=== PATIENT | female | born 1955 | race Caucasian/White ===

== ENCOUNTER 2016-12-07 14:04 | Emergency (ER) | payer BC ==
[2016-12-07 14:50] LABS: BASOPHILS 0.1 % (0-2); EOSINOPHILS 0.1 % (0-7); HEMATOCRIT 31.3 % (36.0-48.0); HEMOGLOBIN 10.8 g/dL (12-16); IMMATURE GRANULOCYTES 0.7 % (0-5); LYMPHOCYTES 8.2 % (15-50); MCH 32.3 pg (26.0-34.0); MCHC 34.5 g/dL (31.0-37.0); MCV 93.7 fL (80.0-100.0); MEAN PLATELET VOLUME 9.8 fL (7.4-10.4); MONOCYTES 10.5 % (2-11); NEUTROPHILS 80.4 % (40-80); PLATELET COUNT 260 10x3/uL (130-400); RBC 3.34 10x6/uL (4.00-5.40); WBC 7.1 10x3/uL (4.8-10.8)
[2016-12-07 15:10] LABS: APPEARANCE CLEAR (CLEAR); BILIRUBIN NEGATIVE (NEGATIVE); COLOR YELLOW (YELLOW); GLUCOSE NEGATIVE (NEGATIVE); KETONE NEGATIVE (NEGATIVE); LEUKOCYTE ESTERASE NEGATIVE (NEGATIVE); NITRITE NEGATIVE (NEGATIVE); PROTEIN NEGATIVE (NEGATIVE); UROBILINOGEN NORMAL (NORMAL)
[2016-12-07 15:14] LABS: INR 1.21 (0.85-1.17); PROTIME 15.2 SECONDS (11.6-15.0)
[2016-12-07 17:23] LABS: ALBUMIN 3.1 g/dL (3.4-5.0); ALKALINE PHOSPHATASE 75 U/L (46-116); ALT (SGPT) 15 U/L (10-68); BILIRUBIN - TOTAL 0.32 mg/dL (0.2-1.3); CALC OSMOLALITY 278 mosm/kg (275-300); CALCIUM 8.9 mg/dL (8.5-10.1); CARBON DIOXIDE 24.3 mmol/L (21.0-32.0); CHLORIDE - SERUM 106 mmol/L (98-107); CREATININE - SERUM 0.8 mg/dL (0.6-1.3); GLUCOSE 114 mg/dL (74-106); PROTEIN - SERUM 6.8 g/dL (6.4-8.2); SODIUM 140 mmol/L (136-145); UREA NITROGEN 10 mg/dL (7-18); eGFR NON AFRICAN AMERICAN 77 mL/min (90-120)
[2016-12-07 17:25] LABS: CREATINE KINASE 18 UL (21-215); MAGNESIUM - SERUM 1.6 mg/dL (1.8-2.4); TROPONIN-I < 0.017 ng/mL (0.000-0.060)
== END 2016-12-07 19:14 | disposition home or self-care (01) ==
LOC: D.ER 14:04
PROVIDERS: Emergency Medicine; Nurse Practitioner Family
DX: R53.1 Weakness (principal); E86.0 Dehydration; C34.90 Malignant neoplasm of unspecified part of unspecified bronchus or lung

== ENCOUNTER 2017-03-28 10:36 | Outpatient (CLI) | payer BC ==
[~2017-03-28 10:36] MED LIST: ALDACTONE100 MG PO; ALLOPURINOL TAB 300; APRISO0.375 GM PO; ARMOUR THYROID90 MG PO; EFFEXOR75 MG PO; ELIQUIS5 MG PO; HYDROCODONE-APA1 TAB PO; METFORMIN TAB 500; PROTONIX40 MG PO; TEMAZEPAM30 MG PO; TESSALON PERLE100 MG PO; VICTOZA0.6 MG/0.1 SQ; VITAMIN B-1000 MCG/M IM; ZETIA10 MG PO
[2017-03-28 15:07] VITALS: BP 125/68
--- NOTE | 2017-03-28 15:09 | NUR ---
1350-PT. ARRIVED TO OUTPATIENT WITH PORT ACCESSED, OCCLUSIVE DRESSING APPLIED. BRISK BLOOD RETURN, FLUSHED WITH 10CC NORMAL SALINE. INITIATED NORMAL SALINE ON PUMP @ [facility].
== END 2017-03-28 15:15 ==
LOC: D.OPS 10:36
DX: D69.6 Thrombocytopenia, unspecified (principal)

== ENCOUNTER 2017-12-12 15:27 | Emergency (ER) | payer BC ==
[~2017-12-12] VITALS: Ht 154.9 cm; Wt 73.2 kg
[2017-12-12 15:31] VITALS: Ht 154.9 cm; Wt 73.2 kg
[2017-12-12] MEDS ORDERED: ADIPEX-P37.5 M1 PO (15:37)
[2017-12-12] MEDS ORDERED: FOLIC ACID1 MG PO (15:38)
[2017-12-12] MEDS ORDERED: NEURONTIN 300300 MG PO (15:38)
[2017-12-12] MEDS ORDERED: VENTOLIN HFA18 GM INH (15:38)
[2017-12-12] MEDS ORDERED: GEMCITABINE SC (15:40)
[2017-12-12] MEDS ORDERED: GAVISCON E1 TAB.CHEW PO (15:40)
[2017-12-12] MEDS ORDERED: Chemo (15:41)
[2017-12-12 18:27] VITALS: BP 108/78
== END 2017-12-12 18:16 | disposition home or self-care (01) ==
LOC: D.ER 15:27
DX: S00.83XA Contusion of other part of head, initial encounter (principal); S20.211A Contusion of right front wall of thorax, initial encounter; W01.0XXA Fall on same level from slipping, tripping and stumbling without subsequent striking against object, initial encounter; Y93.89 Activity, other specified; Y92.834 Zoological garden (Zoo) as the place of occurrence of the external cause; S09.90XA Unspecified injury of head, initial encounter; C34.90 Malignant neoplasm of unspecified part of unspecified bronchus or lung; C79.31 Secondary malignant neoplasm of brain; E11.9 Type 2 diabetes mellitus without complications; J44.9 Chronic obstructive pulmonary disease, unspecified

== ENCOUNTER 2017-12-16 09:29 | Inpatient (IN) | payer BC ==
[~2017-12-16] VITALS: Ht 154.9 cm; Wt 73.1 kg
[~2017-12-16 09:29] MED LIST changes: +ADIPEX-P37.5 M1 PO; +Chemo; +FOLIC ACID1 MG PO; +GAVISCON E1 TAB.CHEW PO; +GEMCITABINE SC; +NEURONTIN 300300 MG PO; +VENTOLIN HFA18 GM INH
[2017-12-16 10:32] LABS: BASOPHILS 0.2 % (0-2); EOSINOPHILS 0.7 % (0-7); HEMATOCRIT 36.1 % (36.0-48.0); HEMOGLOBIN 11.9 g/dL (12-16); IMMATURE GRANULOCYTES 0.6 % (0-5); LYMPHOCYTES 15.4 % (15-50); MCH 32.9 pg (26.0-34.0); MCV 99.7 fL (80.0-100.0); MEAN PLATELET VOLUME 8.8 fL (7.4-10.4); MONOCYTES 5.5 % (2-11); NEUTROPHILS 77.6 % (40-80); RBC 3.62 10x6/uL (4.00-5.40); RDW 16.9 % (11.5-14.5); WBC 8.4 10x3/uL (4.8-10.8)
[2017-12-16 10:35] LABS: PLATELET COUNT 408 10x3/uL (130-400)
[2017-12-16 10:41] LABS: INR 1.49 (0.85-1.17); PROTIME 17.5 SECONDS (11.6-15.0)
[2017-12-16 10:52] LABS: ALBUMIN 3.1 g/dL (3.4-5.0); ANION GAP 11.8 mmol/L (8-16); BILIRUBIN - TOTAL 0.52 mg/dL (0.2-1.3); CARBON DIOXIDE 27.4 mmol/L (21.0-32.0); CREATININE - SERUM 0.9 mg/dL (0.6-1.3); POTASSIUM - SERUM 3.2 mmol/L (3.5-5.1); PROTEIN - SERUM 7.3 g/dL (6.4-8.2)
[2017-12-16 10:55] LABS: THYROID STIMULATING HORMONE 3.36 uIU/mL (0.36-3.74)
[2017-12-16] MEDS ORDERED: BENZONATATE200 MG PO (15:45)
[2017-12-16 16:02] VITALS: BP 133/71; BMI 30.5
[2017-12-16] MEDS ORDERED: KLOR-CON M2020 MEQ PO (16:02)
[2017-12-16 17:26] VITALS: BP 133/71
[2017-12-16 20:00] VITALS: BP 140/79
[2017-12-17] VITALS: BP 135/77
[2017-12-17 05:40] LABS: BASOPHILS 0 % (0-2); EOSINOPHILS 0 % (0-7); HEMATOCRIT 33.1 % (36.0-48.0); IMMATURE GRANULOCYTES 0.4 % (0-5); LYMPHOCYTES 6.3 % (15-50); MCH 32.9 pg (26.0-34.0); MCHC 33.2 g/dL (31.0-37.0); MCV 99.1 fL (80.0-100.0); MEAN PLATELET VOLUME 9.1 fL (7.4-10.4); MONOCYTES 4.2 % (2-11); NEUTROPHILS 89.1 % (40-80); PLATELET COUNT 452 10x3/uL (130-400); RBC 3.34 10x6/uL (4.00-5.40); RDW 16.6 % (11.5-14.5)
[2017-12-17 05:59] LABS: CARBON DIOXIDE 24.9 mmol/L (21.0-32.0); CHLORIDE - SERUM 101 mmol/L (98-107); CREATININE - SERUM 0.7 mg/dL (0.6-1.3); GLUCOSE 124 mg/dL (74-106); SODIUM 135 mmol/L (136-145); eGFR NON AFRICAN AMERICAN 90 mL/min (90-120)
[2017-12-17 06:11] LABS: CALC OSMOLALITY 268 mosm/kg (275-300); POTASSIUM - SERUM 3.8 mmol/L (3.5-5.1); UREA NITROGEN 6 mg/dL (7-18)
[2017-12-17 06:46] LABS: WBC 4.6 10x3/uL (4.8-10.8)
[2017-12-17 08:33] VITALS: BP 150/78
[2017-12-17] MEDS ORDERED: PHENERGAN25 M1 PO (09:27)
[2017-12-17 11:43] VITALS: BP 142/79
[2017-12-17 13:20] VITALS: Ht 154.9 cm; Wt 73.1 kg
[2017-12-17 15:42] VITALS: BP 121/61
[2017-12-17 20:23] VITALS: BP 124/77; BP 127/71
[2017-12-18 00:47] VITALS: BP 142/82
[2017-12-18 06:01] VITALS: BP 147/69
[2017-12-18 08:08] VITALS: BP 147/81
[2017-12-18 08:53] LABS: BASOPHILS 0 % (0-2); EOSINOPHILS 0 % (0-7); HEMATOCRIT 33.3 % (36.0-48.0); HEMOGLOBIN 10.8 g/dL (12-16); IMMATURE GRANULOCYTES 0.4 % (0-5); LYMPHOCYTES 7.9 % (15-50); MCH 32.6 pg (26.0-34.0); MCHC 32.4 g/dL (31.0-37.0); MCV 100.6 fL (80.0-100.0); MEAN PLATELET VOLUME 8.9 fL (7.4-10.4); MONOCYTES 1.3 % (2-11); NEUTROPHILS 90.4 % (40-80); PLATELET COUNT 474 10x3/uL (130-400); RBC 3.31 10x6/uL (4.00-5.40); RDW 17.2 % (11.5-14.5)
[2017-12-18 09:00] LABS: WBC 8.2 10x3/uL (4.8-10.8)
[2017-12-18 09:15] LABS: CALC OSMOLALITY 277 mosm/kg (275-300); CALCIUM 9.4 mg/dL (8.5-10.1); CARBON DIOXIDE 29.8 mmol/L (21.0-32.0); CHLORIDE - SERUM 100 mmol/L (98-107); CREATININE - SERUM 0.8 mg/dL (0.6-1.3); GLUCOSE 151 mg/dL (74-106); POTASSIUM - SERUM 3.9 mmol/L (3.5-5.1); SODIUM 138 mmol/L (136-145); UREA NITROGEN 11 mg/dL (7-18); eGFR NON AFRICAN AMERICAN 77 mL/min (90-120)
[2017-12-18 10:41] VITALS: BP 145/68
[2017-12-18 15:25] VITALS: BP 133/68
[2017-12-18 20:22] VITALS: BP 137/68
[2017-12-19 00:25] VITALS: BP 154/80
[2017-12-19 05:43] LABS: BASOPHILS 0 % (0-2); EOSINOPHILS 0 % (0-7); HEMATOCRIT 37.3 % (36.0-48.0); HEMOGLOBIN 12.2 g/dL (12-16); IMMATURE GRANULOCYTES 0.3 % (0-5); LYMPHOCYTES 7.2 % (15-50); MCH 33.2 pg (26.0-34.0); MCHC 32.7 g/dL (31.0-37.0); MCV 101.4 fL (80.0-100.0); MEAN PLATELET VOLUME 9.2 fL (7.4-10.4); MONOCYTES 2.8 % (2-11); NEUTROPHILS 89.7 % (40-80); PLATELET COUNT 548 10x3/uL (130-400); RBC 3.68 10x6/uL (4.00-5.40); RDW 17.5 % (11.5-14.5)
[2017-12-19 05:53] VITALS: BP 160/73
[2017-12-19 05:57] LABS: CALC OSMOLALITY 269 mosm/kg (275-300); CALCIUM 10.2 mg/dL (8.5-10.1); CARBON DIOXIDE 32.1 mmol/L (21.0-32.0); CHLORIDE - SERUM 99 mmol/L (98-107); CREATININE - SERUM 0.8 mg/dL (0.6-1.3); GLUCOSE 117 mg/dL (74-106); SODIUM 135 mmol/L (136-145); UREA NITROGEN 10 mg/dL (7-18); eGFR NON AFRICAN AMERICAN 77 mL/min (90-120)
[2017-12-19 06:04] LABS: POTASSIUM - SERUM 4.9 mmol/L (3.5-5.1)
[2017-12-19 08:33] VITALS: BP 160/86
[2017-12-19] MEDS ORDERED: GLUCOPHAGE1000 MG PO (11:06)
[2017-12-19] MEDS ORDERED: DECADRON4 MG PO (11:06)
[2017-12-19] MEDS ORDERED: HUMULIN R100 U/ML SC (11:07)
[2017-12-19] MEDS ORDERED: LOMOTIL TABLET1 TAB PO (11:07)
[2017-12-19 12:55] VITALS: BP 154/75
== END 2017-12-19 16:02 | DRG 80 ==
LOC: D.ER 09:29 → D.EDHOLD 12:20 → D.M2 12:20
PROVIDERS: Family Medicine; Internal Medicine Nephrology
DX: G93.6 Cerebral edema (principal); J18.9 Pneumonia, unspecified organism; C79.31 Secondary malignant neoplasm of brain; C34.90 Malignant neoplasm of unspecified part of unspecified bronchus or lung; K50.90 Crohn's disease, unspecified, without complications; E87.6 Hypokalemia

== ENCOUNTER 2018-01-09 16:16 | Inpatient (IN) | payer BC ==
[~2018-01-09] VITALS: Ht 154.9 cm; Wt 61.2 kg
[~2018-01-09 16:16] MED LIST changes: +BENZONATATE200 MG PO; +DECADRON4 MG PO; +GLUCOPHAGE1000 MG PO; +HUMULIN R100 U/ML SC; +KLOR-CON M2020 MEQ PO; +LOMOTIL TABLET1 TAB PO; +PHENERGAN25 M1 PO
[2018-01-09 19:38] VITALS: BP 130/77; BMI 25.5
[2018-01-09 21:15] LABS: BASOPHILS 0.1 % (0-2); EOSINOPHILS 0.1 % (0-7); HEMATOCRIT 27.2 % (36.0-48.0); HEMOGLOBIN 8.6 g/dL (12-16); IMMATURE GRANULOCYTES 0.6 % (0-5); LYMPHOCYTES 4.5 % (15-50); MCH 32.3 pg (26.0-34.0); MCHC 31.6 g/dL (31.0-37.0); MCV 102.3 fL (80.0-100.0); MEAN PLATELET VOLUME 9.5 fL (7.4-10.4); MONOCYTES 4.9 % (2-11); NEUTROPHILS 89.8 % (40-80); RBC 2.66 10x6/uL (4.00-5.40); RDW 16.9 % (11.5-14.5)
[2018-01-09 21:16] LABS: PLATELET COUNT 179 10x3/uL (130-400)
[2018-01-09 21:29] VITALS: BP 130/73
[2018-01-09 21:31] LABS: ALBUMIN 1.9 g/dL (3.4-5.0); BILIRUBIN - TOTAL 0.65 mg/dL (0.2-1.3); CALCIUM 8.9 mg/dL (8.5-10.1); CARBON DIOXIDE 24.1 mmol/L (21.0-32.0); POTASSIUM - SERUM 4.1 mmol/L (3.5-5.1); PROTEIN - SERUM 5.5 g/dL (6.4-8.2)
[2018-01-10 00:12] VITALS: BP 98/52
[2018-01-10 04:36] VITALS: BP 97/54
[2018-01-10 05:51] LABS: BASOPHILS 0.1 % (0-2); EOSINOPHILS 0 % (0-7); HEMOGLOBIN 8.7 g/dL (12-16); LYMPHOCYTES 4.3 % (15-50); MCH 32.5 pg (26.0-34.0); MCHC 31.1 g/dL (31.0-37.0); MEAN PLATELET VOLUME 10.3 fL (7.4-10.4); MONOCYTES 4.4 % (2-11); NEUTROPHILS 90.2 % (40-80); RBC 2.68 10x6/uL (4.00-5.40); RDW 16.9 % (11.5-14.5); WBC 10.4 10x3/uL (4.8-10.8)
[2018-01-10 06:15] LABS: MCV 104.5 fL (80.0-100.0); PLATELET COUNT 215 10x3/uL (130-400)
[2018-01-10 06:32] LABS: ALBUMIN 1.9 g/dL (3.4-5.0); ANION GAP 12.8 mmol/L (8-16); BILIRUBIN - TOTAL 0.54 mg/dL (0.2-1.3); CALCIUM 9.1 mg/dL (8.5-10.1); CARBON DIOXIDE 26.8 mmol/L (21.0-32.0); POTASSIUM - SERUM 4.6 mmol/L (3.5-5.1); PROTEIN - SERUM 5.8 g/dL (6.4-8.2)
[2018-01-10 11:24] LABS: MAGNESIUM - SERUM 2.4 mg/dL (1.8-2.4); PHOSPHOROUS 4.1 mg/dL (2.5-4.9)
[2018-01-10 13:27] VITALS: Ht 154.9 cm; Wt 61.2 kg
[2018-01-11 09:13] LABS: FOLATE (FOLIC ACID) - SERUM 18.8 ng/mL (>3.0)
== END 2018-01-10 20:00 | DRG 180 ==
LOC: D.MS 16:16
PROVIDERS: Internal Medicine Hematology & Oncology
DX: C34.90 Malignant neoplasm of unspecified part of unspecified bronchus or lung (principal); R40.2314 Coma scale, best motor response, none, 24 hours or more after hospital admission; R40.2114 Coma scale, eyes open, never, 24 hours or more after hospital admission; R40.2214 Coma scale, best verbal response, none, 24 hours or more after hospital admission; C79.31 Secondary malignant neoplasm of brain; K50.90 Crohn's disease, unspecified, without complications; G81.94 Hemiplegia, unspecified affecting left nondominant side; I46.9 Cardiac arrest, cause unspecified; G89.3 Neoplasm related pain (acute) (chronic); Z66 Do not resuscitate; E03.9 Hypothyroidism, unspecified; E11.40 Type 2 diabetes mellitus with diabetic neuropathy, unspecified; Z79.4 Long term (current) use of insulin; Z87.891 Personal history of nicotine dependence; R40.0 Somnolence; T40.2X5A Adverse effect of other opioids, initial encounter; Y92.239 Unspecified place in hospital as the place of occurrence of the external cause; R40.2353 Coma scale, best motor response, localizes pain, at hospital admission; R40.2143 Coma scale, eyes open, spontaneous, at hospital admission; R40.2243 Coma scale, best verbal response, confused conversation, at hospital admission